=== PATIENT | male | born 1990 | race Caucasian/White ===

== ENCOUNTER → 2017-11-26 | Outpatient (CLI) | payer OTHER | LOC: M OUTALCOH 08:00 | DX: Z13.9 Encounter for screening, unspecified (principal); F10.20 Alcohol dependence, uncomplicated ==

== ENCOUNTER 2017-12-05 15:37 | Outpatient (RCR) | payer OTHER | END 2017-12-29 | LOC: M OUTALCOH 15:37 | DX: F10.20 Alcohol dependence, uncomplicated (principal) ==

== ENCOUNTER 2017-12-31 09:04 | Outpatient (RCR) | payer OTHER | END 2018-01-29 | LOC: M OUTALCOH 01-05 16:00 | DX: F10.20 Alcohol dependence, uncomplicated (principal) ==

== ENCOUNTER 2018-01-30 16:08 | Outpatient (RCR) | payer OTHER | END 2018-02-28 | LOC: M OUTALCOH 16:08 | DX: F10.20 Alcohol dependence, uncomplicated (principal) ==

== ENCOUNTER 2018-03-03 15:48 | Outpatient (RCR) | payer OTHER | END 2018-03-31 | LOC: M OUTALCOH 03-05 10:00 | DX: F10.20 Alcohol dependence, uncomplicated (principal) ==

== ENCOUNTER → 2022-01-07 | Outpatient (REF) ==
[~2022-01-07] MED LIST: CELE20TA PO; TRAZ1TAB6 PO
== END ==
LOC: M LAB 21:00